=== PATIENT | male | born 1975 | race Caucasian/White ===

== ENCOUNTER → 2016-11-24 | Outpatient (CLI) | payer OTHER | LOC: KOH-I 15:01 | DX: M62.838 Other muscle spasm (principal) | CPT/HCPCS: 72050 ==

== ENCOUNTER 2017-02-20 03:21 | Emergency (ER) | payer OTHER ==
[2017-02-20 04:05] LABS: HEMOGLOBIN 16.3 gm/dl (14.0-17.5); RED BLOOD COUNT 5.48 M/UL (4.20-5.50)
[2017-02-20 04:16] LABS: BUN/CREATININE RATIO 11 (0-10)
== END 2017-02-20 05:40 | disposition home or self-care (01) ==
LOC: ER1 03:21
PROVIDERS: Physician Assistant
DX: N13.2 Hydronephrosis with renal and ureteral calculous obstruction (principal)
CPT/HCPCS: 36415; 80053; 81001; 85025; 96361; 96374; 96375; 99284; J1885; J2405